=== PATIENT | female | born 1970 | race Caucasian/White ===

== ENCOUNTER 2017-12-04 11:29 | Emergency (ER) | payer MEDICAID, OTHER ==
[~2017-12-04] VITALS: Ht 167.6 cm; Wt 74.6 kg
[2017-12-04] MEDS ORDERED: ACETAMINOPHEN 325MG TABLET PO STA (12:48)
[2017-12-04] MEDS ORDERED: LORAZEPAM 1MG TABLET PO ONE (13:00)
[2017-12-04 16:00] VITALS: BP 121/74
== END 2017-12-04 16:27 | disposition home or self-care (01) ==
LOC: ER 11:29
DX: F41.9 Anxiety disorder, unspecified (principal); R51 Headache; M79.1 Myalgia; M54.2 Cervicalgia; Z98.890 Other specified postprocedural states
CPT/HCPCS: 81025; 99283